=== PATIENT | male | born 1995 | race African-American/Black ===

== ENCOUNTER 2016-12-27 01:11 | Emergency (ER) | payer OTHER ==
[~2016-12-27] VITALS: Ht 203.2 cm; Wt 77.3 kg
[2016-12-27] MEDS ORDERED: IBUPROFEN 600 MG TABLET PO ONE (02:15)
[2016-12-27 03:03] VITALS: BP 127/77
== END 2016-12-27 03:04 | disposition home or self-care (01) ==
LOC: EMS 01:12
DX: S13.4XXA Sprain of ligaments of cervical spine, initial encounter (principal); Z87.891 Personal history of nicotine dependence; V49.40XA Driver injured in collision with unspecified motor vehicles in traffic accident, initial encounter; Y93.89 Activity, other specified; Y92.89 Other specified places as the place of occurrence of the external cause; Y99.8 Other external cause status
CPT/HCPCS: 72125; 99284

== ENCOUNTER 2017-10-22 17:15 | Emergency (ER) | payer OTHER ==
[~2017-10-22] VITALS: Ht 203.2 cm; Wt 75.0 kg
[2017-10-22] MEDS ORDERED: KETOROLAC TROMETHAMINE 30 MG/ML VIAL IM ONE (21:00)
[2017-10-22 21:12] VITALS: BP 100/60
== END 2017-10-22 21:14 | disposition home or self-care (01) ==
LOC: EMS 17:16
DX: S06.0X9A Concussion with loss of consciousness of unspecified duration, initial encounter (principal); M54.5 Low back pain; Z87.891 Personal history of nicotine dependence; Y00.XXXA Assault by blunt object, initial encounter; Y93.89 Activity, other specified; Y92.89 Other specified places as the place of occurrence of the external cause; Y99.8 Other external cause status
CPT/HCPCS: 70450; 72100; 96372; 99284; J1885

== ENCOUNTER 2019-01-27 15:47 | Emergency (ER) | payer OTHER ==
[~2019-01-27] VITALS: Ht 203.2 cm; Wt 77.3 kg
[2019-01-27 19:00] LABS: BASOPHILS % (AUTO) 0.4 % (0.0-2.0); EOSINOPHILS % (AUTO) 3.4 % (1.0-6.0); HEMATOCRIT 45.9 % (41-53); HEMOGLOBIN 14.8 g/dL (13.5-17.5); LYMPHOCYTES # (AUTO) 1.5 K/uL (1.0-4.8); MEAN CORPUSCULAR HGB CONC 32.3 G/dL (31.0-37.0); MEAN CORPUSCULAR VOLUME 93 fL (80-100); MONOCYTES # (AUTO) 0.3 K/uL (0.1-1.0); MONOCYTES % (AUTO) 6.4 % (2.0-9.0); NEUTROPHILS # (AUTO) 2.9 K/uL (1.8-7.7); NEUTROPHILS % (AUTO) 59.8 % (40.0-70.0); PLATELET COUNT (AUTO) 227 K/uL (150-450); RED BLOOD CELL COUNT(AUTO) 4.95 MIL/uL (4.50-5.90); RED CELL DISTRIBUTION WIDTH 12.9 % (11.5-14.5)
[2019-01-27 19:07] LABS: ANION GAP 11 mmol/L (8-16); CALCIUM, TOTAL 9.6 mg/dL (8.8-10.5); CARBON DIOXIDE 29 mmol/L (22-29); CHLORIDE 104 mmol/L (98-107); CREATININE 1.08 mg/dL (0.60-1.30); GLOMERULAR FILTR. RATE CALC > 60 mL/min (>60); GLUCOSE,RANDOM 87 mg/dL (70-110); POTASSIUM 4.5 mmol/L (3.5-5.1); SODIUM SERUM 144 mmol/L (136-145); UREA NITROGEN, BLOOD 15 mg/dL (7-18)
[2019-01-27 19:14] LABS: ALANINE AMINOTRANSFERASE 18 U/L (12-78); ALBUMIN 4.2 g/dL (3.4-5.0); ALKALINE PHOSPHATASE 104 U/L (46-116); ASPARTATE AMINOTRANSFERASE 22 U/L (15-37); BILIRUBIN,TOTAL 1.7 mg/dL (0.1-1.0); LIPASE 212 U/L (73-393); TOTAL PROTEIN, SERUM 7.7 g/dL (6.4-8.2)
[2019-01-27 20:27] LABS: APPEARANCE,URINE CLEAR (CLEAR); BILIRUBIN,URINE NEGATIVE (NEGATIVE); GLUCOSE, URINE (UA) NEGATIVE (NEGATIVE); KETONES,URINE NEGATIVE (NEGATIVE); LEUKOCYTE ESTERASE ,URINE TRACE (NEGATIVE); NITRATE,URINE NEGATIVE (NEGATIVE); OCCULT BLOOD,URINE NEGATIVE (NEGATIVE); PROTEIN,URINE NEGATIVE (NEGATIVE)
[2019-01-27 20:38] LABS: BACTERIA,URINE Rare /HPF (None Seen); RBC,URINE 0-2 /HPF (0-2); SQUAMOUS EPITHELIAL CELL,UR Few /LPF (None Seen)
[2019-01-27] MEDS ORDERED: ACETAMINOPHEN 325 MG TABLET PO ONE (20:45)
[2019-01-27] MEDS ORDERED: IBUPROFEN 600 MG TABLET PO ONE (20:45)
[2019-01-27 21:21] VITALS: BP 138/82
== END 2019-01-27 21:24 | disposition home or self-care (01) ==
LOC: EMS 15:47
DX: K59.00 Constipation, unspecified (principal); F12.90 Cannabis use, unspecified, uncomplicated; Z87.891 Personal history of nicotine dependence
CPT/HCPCS: 74176

== ENCOUNTER 2019-06-22 18:01 | Emergency (ER) | payer OTHER ==
[~2019-06-22] VITALS: Ht 203.2 cm; Wt 77.3 kg
[2019-06-22] MEDS ORDERED: BC ASPIRIN PO (18:19)
[2019-06-22 19:50] LABS: BASOPHILS % (AUTO) 0.4 % (0.0-2.0); EOSINOPHILS % (AUTO) 6.3 % (1.0-6.0); HEMATOCRIT 45.4 % (41-53); LYMPHOCYTES # (AUTO) 1.5 K/uL (1.0-4.8); LYMPHOCYTES % (AUTO) 46.6 % (22.0-44.0); MEAN CORPUSCULAR HEMOGLOBIN 30.8 pg (26.0-34.0); MEAN CORPUSCULAR VOLUME 94 fL (80-100); MONOCYTES # (AUTO) 0.4 K/uL (0.1-1.0); MONOCYTES % (AUTO) 13.5 % (2.0-9.0); NEUTROPHILS # (AUTO) 1.1 K/uL (1.8-7.7); NEUTROPHILS % (AUTO) 33.2 % (40.0-70.0); PLATELET COUNT (AUTO) 225 K/uL (150-450); RED BLOOD CELL COUNT(AUTO) 4.86 MIL/uL (4.50-5.90); RED CELL DISTRIBUTION WIDTH 12.6 % (11.5-14.5)
[2019-06-22 20:02] LABS: ANION GAP 8 mmol/L (8-16); CALCIUM, TOTAL 8.9 mg/dL (8.8-10.5); CARBON DIOXIDE 29 mmol/L (22-29); CHLORIDE 105 mmol/L (98-107); CREATININE 1.09 mg/dL (0.60-1.30); GLOMERULAR FILTR. RATE CALC > 60 mL/min (>60); GLUCOSE,RANDOM 73 mg/dL (70-110); POTASSIUM 4.1 mmol/L (3.5-5.1); SODIUM SERUM 142 mmol/L (136-145); UREA NITROGEN, BLOOD 12 mg/dL (7-18)
[2019-06-22 20:07] LABS: ALANINE AMINOTRANSFERASE 22 U/L (12-78); ALBUMIN 3.9 g/dL (3.4-5.0); ALKALINE PHOSPHATASE 106 U/L (46-116); ASPARTATE AMINOTRANSFERASE 17 U/L (15-37); BILIRUBIN,TOTAL 1.6 mg/dL (0.1-1.0); TOTAL PROTEIN, SERUM 7.4 g/dL (6.4-8.2)
[2019-06-22 20:15] VITALS: BP 122/71
== END 2019-06-22 20:46 | disposition home or self-care (01) ==
LOC: EMS 18:02
DX: F41.9 Anxiety disorder, unspecified (principal); R00.2 Palpitations; G47.00 Insomnia, unspecified; G43.909 Migraine, unspecified, not intractable, without status migrainosus; F12.90 Cannabis use, unspecified, uncomplicated; Z87.891 Personal history of nicotine dependence; Z79.82 Long term (current) use of aspirin
CPT/HCPCS: 36415; 71045; 80053; 85025; 93005; 99285; G0480

== ENCOUNTER 2022-03-05 03:09 | Emergency (ER) | payer MEDICAID, OTHER ==
[~2022-03-05] VITALS: Ht 203.2 cm; Wt 75.9 kg
[~2022-03-05 03:09] MED LIST: BC ASPIRIN PO
[2022-03-05 03:12] VITALS: BP 127/74
== END 2022-03-05 03:52 | disposition home or self-care (01) ==
LOC: EMS 03:11
DX: N48.89 Other specified disorders of penis (principal); F12.90 Cannabis use, unspecified, uncomplicated; Z87.891 Personal history of nicotine dependence
CPT/HCPCS: 99281; Z7502

== ENCOUNTER 2025-06-10 09:29 | Emergency (ER) | payer MEDICAID, OTHER ==
[~2025-06-10] VITALS: Ht 205.7 cm; Wt 85.9 kg
[2025-06-10 09:32] VITALS: TEMP 97.5
[2025-06-10 09:58] LABS: PLATELET COUNT (AUTO) 255 K/uL (150-450); RED BLOOD CELL COUNT(AUTO) 4.77 MIL/uL (4.50-5.90); RED CELL DISTRIBUTION WIDTH 12.7 % (11.5-14.5); WHITE BLOOD COUNT (AUTO) 5.3 K/uL (4.5-11.0)
[2025-06-10 10:13] LABS: CALCIUM, TOTAL 8.8 mg/dL (8.8-10.5); CREATININE 1.15 mg/dL (0.60-1.30); GLOMERULAR FILTR. RATE CALC > 60 mL/min (>60); GLUCOSE,RANDOM 211 mg/dL (70-110); SODIUM SERUM 138 mmol/L (136-145); UREA NITROGEN, BLOOD 8 mg/dL (7-18)
[2025-06-10 10:26] LABS: ASPARTATE AMINOTRANSFERASE 15.0 U/L (15-37); TOTAL PROTEIN, SERUM 6.7 g/dL (6.4-8.2)
[2025-06-10 11:47] LABS: APPEARANCE,URINE CLEAR (CLEAR); GLUCOSE, URINE (UA) TRACE mg/dL (NEGATIVE); LEUKOCYTE ESTERASE ,URINE MODERATE (NEGATIVE); NITRATE,URINE NEGATIVE (NEGATIVE); OCCULT BLOOD,URINE NEGATIVE (NEGATIVE); SPECIFIC GRAVITIY, URINE 1.014 (1.003-1.030)
[2025-06-10 12:20] LABS: SQUAMOUS EPITHELIAL CELL,UR Few /LPF (None Seen)
[2025-06-10] MEDS: POTASSIUM CITRATE 5 MEQ ER TABLET PO ONE (13:51)
[2025-06-10] MEDS: ONDANSETRON 4 MG TABLET PO ONE (14:44)
[2025-06-10] MEDS: OxyCODONE HCL/ACETAMINOPHEN 5-325 MG TABLET PO ONE (14:44)
[2025-06-10] MEDS: KETOROLAC TROMETHAMINE 60 MG/2 ML VIAL IM ONE (14:44)
[2025-06-10] MEDS: POTASSIUM CHLORIDE 20 MEQ ER TABLET PO ONE (14:44)
[2025-06-10] MEDS ORDERED: IBUP-1492 PO (15:11)
[2025-06-10] MEDS ORDERED: CEPH-558 PO (15:11)
[2025-06-10] MEDS: LIDOCAINE/PF 1% 2 ML VIAL IM ONE (15:28)
[2025-06-10] MEDS: CefTRIAXone SODIUM 1 GM/VIAL IM ONE (15:28)
[2025-06-10 15:29] VITALS: BP 126/81; PULSE 88; RESP 16; O2SAT 98
== END 2025-06-10 15:37 | disposition home or self-care (01) ==
LOC: EMS 09:34
DX: N39.0 Urinary tract infection, site not specified (principal); R30.0 Dysuria; G43.909 Migraine, unspecified, not intractable, without status migrainosus; F12.90 Cannabis use, unspecified, uncomplicated; Z87.891 Personal history of nicotine dependence; Z86.19 Personal history of other infectious and parasitic diseases
CPT/HCPCS: 99285; 76700; 80048; 80076; 81001; 83690; 85025; 87086; 36415; 96372; J1885; J0696; J3490; Q0162

== ENCOUNTER 2025-06-20 11:48 | Emergency (ER) | payer OTHER ==
[~2025-06-20] VITALS: Ht 203.2 cm; Wt 75.0 kg
[~2025-06-20 11:48] MED LIST changes: -BC ASPIRIN PO; +CEPH-558 PO; +IBUP-1492 PO
[2025-06-20 11:54] VITALS: TEMP 97.3
[2025-06-20] MEDS: FLUORESCEIN SODIUM 1 MG STRIP OD ONE (14:45)
[2025-06-20] MEDS: PROPARACAINE HCL 0.5% 15 ML OPHTHALMIC SOLUTION OD ONE (14:48)
[2025-06-20] MEDS ORDERED: IBUP-1554 PO (15:43)
[2025-06-20] MEDS ORDERED: HYDR-4062 PO (15:43)
[2025-06-20] MEDS ORDERED: SULF15DR26 OD (15:43)
[2025-06-20 16:00] VITALS: BP 128/76; PULSE 72; RESP 18; O2SAT 100
[2025-06-20] MEDS: ERYTHROMYCIN 0.5% 3.5 GM TUBE OPHTHALMIC OINTMENT OD ONE (16:03)
[2025-06-20] MEDS: HYDROCODONE/ACETAMINOPHEN 5-325 MG TABLET PO ONE (16:03)
== END 2025-06-20 16:39 | disposition home or self-care (01) ==
LOC: EMS 11:56
DX: S05.01XA Injury of conjunctiva and corneal abrasion without foreign body, right eye, initial encounter (principal); F12.90 Cannabis use, unspecified, uncomplicated; Z87.891 Personal history of nicotine dependence; Z79.899 Other long term (current) drug therapy; Z86.19 Personal history of other infectious and parasitic diseases; H57.89 Other specified disorders of eye and adnexa; X58.XXXA Exposure to other specified factors, initial encounter; Y93.89 Activity, other specified; Y92.89 Other specified places as the place of occurrence of the external cause; Y99.8 Other external cause status
CPT/HCPCS: 99283

== ENCOUNTER 2025-08-08 10:08 | Emergency (ER) | payer OTHER ==
[~2025-08-08] VITALS: Ht 205.7 cm; Wt 77.3 kg
[~2025-08-08 10:08] MED LIST changes: +HYDR-4062 PO; +IBUP-1554 PO; +SULF15DR26 OD
[2025-08-08 10:17] VITALS: BP 124/89; PULSE 67; RESP 20; TEMP 98.4; O2SAT 99
[2025-08-08 10:48] LABS: PLATELET COUNT (AUTO) 213 K/uL (150-450); RED BLOOD CELL COUNT(AUTO) 4.94 MIL/uL (4.50-5.90); RED CELL DISTRIBUTION WIDTH 12.6 % (11.5-14.5); WHITE BLOOD COUNT (AUTO) 2.5 K/uL (4.5-11.0)
[2025-08-08 10:55] LABS: CALCIUM, TOTAL 9.3 mg/dL (8.8-10.5); CREATININE 1.02 mg/dL (0.60-1.30); GLOMERULAR FILTR. RATE CALC > 60 mL/min (>60); GLUCOSE,RANDOM 76 mg/dL (70-110); SODIUM SERUM 141 mmol/L (136-145); UREA NITROGEN, BLOOD 8 mg/dL (7-18)
[2025-08-08] MEDS: KETOROLAC TROMETHAMINE 30 MG/ML VIAL IM ONE (10:56)
[2025-08-08] MEDS: ACETAMINOPHEN 500 MG TABLET PO ONE (10:56)
[2025-08-08 11:04] LABS: PLATELET MORPHOLOGY COMMENT LARGE PLTS PRESENT; RBC MORPHOLOGY COMMENT NORMAL RBC MORPH
[2025-08-08] MEDS ORDERED: ACET-3385 PO (11:14)
[2025-08-08] MEDS ORDERED: IBUP-1492 PO (11:14)
== END 2025-08-08 11:28 | disposition home or self-care (01) ==
LOC: EMS 10:08
DX: G43.909 Migraine, unspecified, not intractable, without status migrainosus (principal); F12.90 Cannabis use, unspecified, uncomplicated; Z87.891 Personal history of nicotine dependence; Z86.19 Personal history of other infectious and parasitic diseases; Z79.899 Other long term (current) drug therapy
CPT/HCPCS: 99285; 70450; 80048; 85025; 36415; 96372; J1885